=== PATIENT | male | born 1965 | race Caucasian/White ===

== ENCOUNTER 2020-04-01 19:41 | Emergency (ER) | payer OTHER ==
[~2020-04-01] VITALS: Ht 175.3 cm; Wt 100.0 kg
[2020-04-01] MEDS ORDERED: ACETAMINOPHEN 500MG TABLET PO ONE (22:30)
[2020-04-01 22:31] VITALS: BP 148/98
== END 2020-04-01 22:32 | disposition home or self-care (01) ==
LOC: ER 19:41
DX: U07.1 COVID-19 (principal); F12.10 Cannabis abuse, uncomplicated; E11.9 Type 2 diabetes mellitus without complications; I10 Essential (primary) hypertension
CPT/HCPCS: 71045; 99283

== ENCOUNTER 2022-08-26 22:03 | Inpatient (IN) | payer SELFPAY ==
[~2022-08-26] VITALS: Ht 175.3 cm; Wt 82.6 kg
[2022-08-26 23:00] LABS: BASOPHILS % 0.2 % (0.0-2.0); EOSINOPHILS % 0.7 % (0.0-5.0); HEMATOCRIT. 43.4 % (42.0-52.0); HEMOGLOBIN. 15.2 g/dL (14.0-18.0); LYMPHOCYTES % 11.2 % (20.0-50.0); MEAN CORPUSCULAR HEMOGLOBIN 30.2 pg (28.0-32.0); MEAN CORPUSCULAR VOLUME 86.1 fL (80.0-94.0); MEAN PLATELET VOLUME 9.4 fl (7.4-10.4); MONOCYTES % 6.2 % (2.0-8.0); NEUTROPHILS % 81.7 % (40.0-76.0); PLATELET 145 x1000/uL (130-400); RED BLOOD CELL COUNT 5.04 mill/uL (4.7-6.1); RED CELL DISTRIBUTION WIDTH 13.7 % (11.6-14.6)
[2022-08-26 23:07] LABS: CHLORIDE 100 mEq/L (98-107)
[2022-08-26 23:40] LABS: PROTHROMBIN TIME 10.7 sec (9.6-11.0)
[2022-08-27] MEDS ORDERED: ASPIRIN 325MG TABLET PO ONE (01:45)
[2022-08-27 08:15] VITALS: BP 140/98
[2022-08-27] MEDS: ACETAMINOPHEN 325MG TABLET PO PRN ×2 (09:26→20:51)
[2022-08-27 11:20] VITALS: BP 136/87
[2022-08-27] MEDS: FOLIC ACID 1 MG, THIAMINE HCL 100 MG, MVI, ADULT NO.1 10 ML in DEXTROSE 5% WATER 1,000 ML IV SCH ×4 (12:21)
[2022-08-27] MEDS ORDERED: LORAZEPAM 2MG/ML CPJ IV NR (15:30)
[2022-08-27 15:59] VITALS: BP 137/94
[2022-08-27] MEDS: CLOPIDOGREL 75MG TABLET PO SCH (16:13)
[2022-08-27] MEDS: ASPIRIN 81MG TABLET PO SCH (16:13)
[2022-08-27] MEDS ORDERED: AMLO5TAB88 MT (16:15)
[2022-08-27] MEDS ORDERED: LISI-186 MT (16:16)
[2022-08-27] MEDS ORDERED: METF-414 MT (16:16)
[2022-08-27] MEDS ORDERED: POTASSIUM CHLORIDE 20MEQ TABLET SR PO NR (19:15)
[2022-08-27 20:00] VITALS: BP 128/84
[2022-08-27] MEDS: ATORVASTATIN CALCIUM 40MG TABLET PO SCH (20:51)
[2022-08-27 21:57] LABS: HEPATITIS B SURFACE ANTIGEN NEGATIVE
[2022-08-27] MEDS ORDERED: ONDANSETRON HCL 4MG/2ML INJ IV PRN (22:30)
[2022-08-27] MEDS ORDERED: ACETAMINOPHEN 325MG TABLET PO PRN (22:30)
[2022-08-28] VITALS: BP 133/80
[2022-08-28 04:00] VITALS: BP 132/87
[2022-08-28 06:15] LABS: BASOPHILS % 0.4 % (0.0-2.0); EOSINOPHILS % 2.3 % (0.0-5.0); HEMATOCRIT. 45.1 % (42.0-52.0); LYMPHOCYTES % 20.5 % (20.0-50.0); MEAN CORPUSCULAR VOLUME 87.4 fL (80.0-94.0); MEAN PLATELET VOLUME 9.9 fl (7.4-10.4); MONOCYTES % 12.5 % (2.0-8.0); NEUTROPHILS % 64.3 % (40.0-76.0); PLATELET 145 x1000/uL (130-400); RED BLOOD CELL COUNT 5.16 mill/uL (4.7-6.1); RED CELL DISTRIBUTION WIDTH 13.7 % (11.6-14.6)
[2022-08-28 06:52] LABS: CHLORIDE 105 mEq/L (98-107)
[2022-08-28 08:00] VITALS: BP 135/82
[2022-08-28] MEDS: ASPIRIN 81MG TABLET PO SCH (08:45)
[2022-08-28] MEDS: FOLIC ACID 1 MG, THIAMINE HCL 100 MG, MVI, ADULT NO.1 10 ML in DEXTROSE 5% WATER 1,000 ML IV SCH ×4 (08:45)
[2022-08-28] MEDS: CLOPIDOGREL 75MG TABLET PO SCH (08:46)
[2022-08-28] MEDS: METFORMIN HCL 500MG TABLET PO SCH ×2 (08:46→17:28)
[2022-08-28] MEDS ORDERED: AMLODIPINE 5MG TABLET PO SCH (09:00)
[2022-08-28] MEDS ORDERED: LISINOPRIL 5MG TABLET PO SCH (09:00)
[2022-08-28 12:00] VITALS: BP 141/88
[2022-08-28 16:00] VITALS: BP 145/77
[2022-08-28] MEDS: ATORVASTATIN CALCIUM 40MG TABLET PO SCH (20:48)
[2022-08-28] MEDS ORDERED: ASPI-1160 PO (21:15)
[2022-08-28] MEDS ORDERED: LIP40 PO (21:15)
[2022-08-28 21:27] VITALS: BP 120/92
== END 2022-08-28 22:10 | disposition home or self-care (01) | DRG 47 ==
LOC: ER 22:03 → 7WST 08-27 01:46 → EDBEDREQ 08-27 02:30
PROVIDERS: ADMIT Internal Medicine; ATTEND Internal Medicine
DX: G45.9 Transient cerebral ischemic attack, unspecified (principal); E11.9 Type 2 diabetes mellitus without complications; E66.9 Obesity, unspecified; F17.210 Nicotine dependence, cigarettes, uncomplicated; I10 Essential (primary) hypertension; E78.5 Hyperlipidemia, unspecified; Z79.84 Long term (current) use of oral hypoglycemic drugs; Z79.899 Other long term (current) drug therapy; Z68.26 Body mass index [BMI] 26.0-26.9, adult; Z79.82 Long term (current) use of aspirin
CPT/HCPCS: 36415; 70544; 70547; 70553; 71045; 80048; 80053; 80061; 83036; 84484; 85025; 86803; 87340; 93005; 93306; 93880; 99291; J3411; J3490; J7070

== ENCOUNTER 2024-08-26 01:08 | Emergency (ER) | payer SELFPAY ==
[~2024-08-26] VITALS: Ht 175.3 cm; Wt 100.2 kg
[~2024-08-26 01:08] MED LIST: AMLO5TAB88 MT; ASPI-1160 PO; LIP40 PO; LISI-186 MT; METF-414 MT
[2024-08-26 01:57] VITALS: O2SAT 99
[2024-08-26] MEDS: DEXAMETHASONE 10 MG/ML VIAL PO ONE (03:19)
[2024-08-26] MEDS: ACETAMINOPHEN 650MG/20.3ML UDC PO ONE (03:19)
[2024-08-26] MEDS: LISINOPRIL 20MG TABLET PO ONE (03:19)
[2024-08-26 04:31] VITALS: BP 155/95; PULSE 91; RESP 20; TEMP 36.9; O2SAT 97
[2024-08-27] MEDS ORDERED: TOPUD PO (05:44)
[2024-08-27] MEDS ORDERED: IBUP-2030 MT (05:44)
== END 2024-08-26 04:35 | disposition home or self-care (01) ==
LOC: ER 01:08
DX: J02.9 Acute pharyngitis, unspecified (principal); B97.89 Other viral agents as the cause of diseases classified elsewhere; E11.9 Type 2 diabetes mellitus without complications; F12.90 Cannabis use, unspecified, uncomplicated; I10 Essential (primary) hypertension; Z79.899 Other long term (current) drug therapy; Z79.84 Long term (current) use of oral hypoglycemic drugs; Z79.82 Long term (current) use of aspirin; Z79.52 Long term (current) use of systemic steroids
CPT/HCPCS: 87430; 87070; 99284; J1100; Z7610 ×2

== ENCOUNTER 2024-08-27 04:33 | Emergency (ER) | payer SELFPAY ==
[~2024-08-27] VITALS: Ht 175.3 cm; Wt 95.0 kg
[2024-08-27 04:37] VITALS: O2SAT 96
[2024-08-27] MEDS ORDERED: IBUP-2030 MT (05:44)
[2024-08-27] MEDS ORDERED: TOPUD PO (05:44)
[2024-08-27 05:45] VITALS: BP 159/99; PULSE 98; RESP 12; TEMP 36.9; O2SAT 96
== END 2024-08-27 05:57 | disposition home or self-care (01) ==
LOC: ER 04:33
DX: J02.9 Acute pharyngitis, unspecified (principal); F12.10 Cannabis abuse, uncomplicated; E11.9 Type 2 diabetes mellitus without complications; I10 Essential (primary) hypertension; Z79.82 Long term (current) use of aspirin; Z79.899 Other long term (current) drug therapy; Z98.890 Other specified postprocedural states
CPT/HCPCS: 99282

== ENCOUNTER 2025-01-26 17:41 | Inpatient (IN) | payer SELFPAY ==
[~2025-01-26] VITALS: Ht 175.3 cm; Wt 100.3 kg
[~2025-01-26 17:41] MED LIST changes: +IBUP-2030 MT; +TOPUD PO
[2025-01-26 18:32] VITALS: O2SAT 96
[2025-01-26] MEDS: ASPIRIN 81MG TABLET PO ONE (23:19)
[2025-01-27 00:49] LABS: BASOPHILS % 0.6 % (0.0-2.0); EOSINOPHILS % 2.2 % (0.0-5.0); HEMATOCRIT. 47.0 % (42.0-52.0); HEMOGLOBIN. 16.2 g/dL (14.0-18.0); LYMPHOCYTES % 33.4 % (20.0-50.0); MEAN PLATELET VOLUME 9.8 fl (7.4-10.4); MONOCYTES % 8.1 % (2.0-8.0); NEUTROPHILS % 55.7 % (40.0-76.0); PLATELET 148 x1000/uL (130-400); RED BLOOD CELL COUNT 5.36 mill/uL (4.7-6.1); RED CELL DISTRIBUTION WIDTH 13.5 % (11.6-14.6)
[2025-01-27 01:06] LABS: INR 1.0
[2025-01-27 01:20] LABS: CREATININE 0.8 mg/dL (0.6-1.3); UREA NITROGEN BLOOD 11 mg/dL (9-23)
[2025-01-27 01:22] LABS: ASPARTATE AMINOTRANSFERASE 16 IU/L (<34); BILIRUBIN DIRECT 0.1 mg/dL (<=3.0); BILIRUBIN TOTAL 0.5 mg/dL (0.1-1.0); PROTEIN TOTAL 7.5 g/dL (6.0-8.3)
[2025-01-27 01:43] LABS: TROPONIN I HIGH SENSITIVITY 54 ng/L (3.0-53)
[2025-01-27 03:30] VITALS: BP 164/98; PULSE 76; RESP 18; TEMP 36.6; O2SAT 96
[2025-01-27 05:24] LABS: TROPONIN I HIGH SENSITIVITY 52 ng/L (3.0-53)
[2025-01-27 05:28] VITALS: BP 164/98; PULSE 76; RESP 18; TEMP 36.5848
[2025-01-27] MEDS ORDERED: DEXTROSE 50% WATER 50ML SYRINGE IV PRN (05:30)
[2025-01-27] MEDS ORDERED: LISI40TA21 PO (05:37)
[2025-01-27] MEDS: HYDROCODONE/ACETAMINOPHEN 5/325MG TABLET PO PRN (05:54)
[2025-01-27] MEDS: INSULIN LISPRO 100 UNITS/ML SUBCUT SCH (06:15)
[2025-01-27 08:00] VITALS: BP 161/89; PULSE 78; RESP 20; TEMP 36.6; O2SAT 98
[2025-01-27] MEDS ORDERED: INSULIN LISPRO 100 UNITS/ML SUBCUT SCH (08:20)
[2025-01-27] MEDS: ASPIRIN 81MG TABLET PO SCH (09:49)
[2025-01-27] MEDS: ENOXAPARIN 40MG/0.4ML SYR SUBCUT SCH (09:49)
[2025-01-27] MEDS: AMLODIPINE 10MG TABLET PO SCH (09:50)
[2025-01-27] MEDS: METOPROLOL TARTRATE 50MG TABLET PO SCH (09:50)
[2025-01-27 12:00] VITALS: BP 145/95; PULSE 64; RESP 18; TEMP 36.6; O2SAT 99
[2025-01-27 12:22] LABS: HEPATITIS C AB NON REACTIVE (Neg) (Negative)
[2025-01-27] MEDS: BLOOD SUGAR DIAGNOSTIC STRIP TEST SCH (13:33)
[2025-01-27 16:00] VITALS: BP 142/88; PULSE 74; RESP 20; TEMP 36.4; O2SAT 97
[2025-01-27] MEDS: MULTIVITAMINS,THER W-MINERALS TABLET PO SCH (18:07)
[2025-01-27 20:00] VITALS: BP 141/83; PULSE 68; RESP 20; TEMP 36.3; O2SAT 97
[2025-01-27] MEDS: HYDROCORTISONE 1% OINT 28.35GM TOP SCH (21:05)
[2025-01-27] MEDS: ATORVASTATIN CALCIUM 40MG TABLET PO SCH (21:05)
[2025-01-27] MEDS: SULFAMETHOXAZOLE/TRIMETHOPRIM 800/160MG TABLET PO SCH (21:06)
[2025-01-27] MEDS: INSULIN GLARGINE 100 UNITS/ML SUBCUT SCH (21:07)
[2025-01-28] VITALS: BP 141/79; PULSE 65; RESP 20; TEMP 36.2; O2SAT 96
[2025-01-28 04:22] VITALS: BP 147/86; PULSE 66; RESP 18; TEMP 36.3; O2SAT 95
[2025-01-28 08:00] VITALS: BP 142/75; PULSE 60; RESP 18; TEMP 36.7; O2SAT 97
[2025-01-28 12:00] VITALS: BP 136/74; PULSE 62; RESP 16; TEMP 36.8; O2SAT 97
[2025-01-28 16:00] VITALS: BP 115/63; PULSE 71; RESP 18; TEMP 36.7; O2SAT 95
[2025-01-28] MEDS ORDERED: METO-539 PO (17:43)
[2025-01-28] MEDS ORDERED: INSU100I28 SQ (17:43)
[2025-01-28] MEDS ORDERED: SULF1TAB48 MT (17:44)
[2025-01-28 18:07] VITALS: BP 130/75; PULSE 80; RESP 18; TEMP 97.5
== END 2025-01-28 19:00 | disposition home or self-care (01) | DRG 199 ==
LOC: ER 17:41 → 7WST 01-27 01:12 → EDBEDREQ 01-27 01:27 → EDBEDREQTM 01-27 01:27 → ENRESERV 01-27 01:36 → 7WST 01-27 21:10
PROVIDERS: ADMIT Internal Medicine; ATTEND Internal Medicine
DX: I16.0 Hypertensive urgency (principal); E11.65 Type 2 diabetes mellitus with hyperglycemia; K21.9 Gastro-esophageal reflux disease without esophagitis; E66.9 Obesity, unspecified; F17.210 Nicotine dependence, cigarettes, uncomplicated; I10 Essential (primary) hypertension; Z79.899 Other long term (current) drug therapy; Z68.32 Body mass index [BMI] 32.0-32.9, adult; Z71.6 Tobacco abuse counseling
CPT/HCPCS: 36415; 71045; 80048; 80076; 82962; 83880; 84484; 85025; 85379; 86705; 87340; 93005; 99285; A4606; J1650; J1815